=== PATIENT | female | born 1990 | race Caucasian/White ===

== ENCOUNTER 2017-01-24 10:05 | Inpatient (IN) | payer MEDICAID ==
[2017-01-25] MEDS ORDERED: RINGER'S SOLUTION,LACTATED 1,000 ML IV ONE ×3 (00:09→18:15)
[2017-01-25] MEDS ORDERED: OXYTOCIN/DEXTROSE 5%-WATER 30 UNITS/500 ML BAG IV ONE ×2 (00:09→18:15)
[2017-01-25] MEDS ORDERED: ONDANSETRON HCL/PF 2 MG/ML VIAL IV PRN ×3 (00:09→18:15)
[2017-01-25] MEDS ORDERED: LIDOCAINE HCL 50 ML VIAL PERI PRN (00:09)
--- NOTE | 2017-01-25 04:14 | PN ---
Progess Note - Interim Narrative: 01/25/17 04:11 Patient rating contractions mild Vital signs stable. Pitocin at every mu/min. FHT: 140 baseline, reassuring Contractions q 3-4 min Cervix: /-1, AROM-scant clear Impression: Intrauterine at 40 6/7 weeks, induction of labor for post dates Plan: Continue present plan
[2017-01-25] MEDS ORDERED: BUPIVACAINE HCL/0.9 % NACL/PF 250 ML EP PRN (04:48)
[2017-01-25] MEDS ORDERED: NALOXONE HCL 1 MG/1 ML SYRG IV PRN (04:48)
[2017-01-25] MEDS ORDERED: fentaNYL CITRATE/PF 50 MCG/ML AMPUL IT SCH (05:00)
--- NOTE | 2017-01-25 05:39 | OR ---
Anesthesia Pre Procedure Eval Date of Service: 01/25/17 Pre Procedure Evaluation: Anesthesia Pre Procedure Evaluation Heart Rate: 94 Blood Pressure: 106/57 Temperature: 36.5C Respiratory Rate: 18 SaO2: 98 DATE: 01/25/2017 TIME: 05 35 INDICATIONS: Active labor, labor pain PAST MEDICAL HISTORY: Multipara patient in active labor requesting labor analgesia History of GERD: No History of smoking: No History of sleep apnea: No EXAM: Heart regular; lungs clear ASSESSMENT OF MEDICAL STATUS: Appropriate candidate for labor analgesia PLANNED PROCEDURE: Combination spinal epidural for labor analgesia Home Medications: HOME MEDICATIONS Ferrous Sulfate [Iron] 325 mg PO DAILY 12/04/12 [Last Taken 09/01/16 08:00] Vits96/Iron Fum/Folic [ S] 1 tab PO DAILY 12/04/12 [Last Taken 09/01/16 08:00]
--- NOTE | 2017-01-25 06:03 | OR ---
Anesthesia Procedure Note - Anesthesia Procedure Note Date of Service: 01/25/17 Narrative: 01/25/17 06:01 ANESTHESIA PROCEDURE NOTE Date of Procedure: 01/25/2017 Time of procedure: 5:35 AM. Performed by: ITZEL Jalloh CRNA, MSN Crane Rigger: Sandee Garcia. Preprocedure diagnosis: Active labor, labor pain. Post procedure diagnosis: Same. Procedure:Epidural for labor analgesia L3 4. Indications: Active labor, labor pain. Findings: See below. Details of the procedure: The patient was placed on the side of the bed in sitting positionand prepped with DuraPrep then draped in a sterile fashion. Lidocaine 1% was infiltrated to the skin and subcutaneous tissues at the level of the L3 4 interspace. An 18-gauge Touhy needle was used to approach the epidural space with loss of resistance technique. Once loss of resistance was achieved a 27-gauge spinal needle was passed through the epidural needle and CSF was contacted. After CSF returned, 20 mcg of fentanyl was injected in the spinal needle was removed the epidural catheter was then threaded approximately 4 cm in the epidural needle was removed. The catheter was taped in place and after careful aspiration 3 mL of 1.5% lidocaine with 1-200,000 epinephrine was injected without change in maternal heart rate or sensorium. . EBL: Minimal. Fluids: N/A. Specimen: N/A. Post procedure condition: The patient tolerated the procedure well with. Good Relief. No complications were noted. Thank you for this consultation. Desmond Nieto CRNA, ARNP, MSN
[2017-01-25] MEDS: DEXTROSE 5%-LACTATED RINGERS 1,000 ML IV PRN ×3 (06:32→14:30)
--- NOTE | 2017-01-25 12:58 | PN ---
Progess Note - Interim Narrative: 01/25/17 12:56 Patient comfortable with epidural Vital signs stable. Pitocin at 18 mu/min. FHT: 130 baseline, several breaks and the tracing was therefore Contractions q 2 -3 min Cervix: 7/90/-2 Impression: Intrauterine at 40 6/7 weeks, induction of labor for postdates Plan: Continue present plan
--- NOTE | 2017-01-25 16:45 | PN ---
Progess Note - Interim Narrative: 01/25/17 16:40 Patient not getting much relief with epidural during contractions despite 3 re- boluses. AFVSS. Variable late decelerations becoming more frequent, despite multiple position changes. Patient unable to push presenting part past 0 station. Contractions q 2-3 min. Pitocin at 15 mu/min. Cvx complete/0. Large caput. Impression: 40 6/7 wk IUP with intolerance to labor Plan: If tracing doesn't improve will proceed with emergent C/S.
[2017-01-25] MEDS ORDERED: ceFAZolin SODIUM 1 GM VIAL IM/IV ONE (17:10)
[2017-01-25] MEDS ORDERED: OXYTOCIN 20 UNITS in RINGER'S SOLUTION,LACTATED 1,000 ML IV ONE (17:13)
[2017-01-25] MEDS ORDERED: ceFAZolin SODIUM/DEXTROSE,ISO 2 GM/50 ML BAG IV ONE (17:13)
[2017-01-25] MEDS ORDERED: RINGER S LACTATED IV ONE (18:10)
[2017-01-25] MEDS ORDERED: BISACODYL 10 MG SUPP.RECT RC PRN (18:15)
[2017-01-25] MEDS ORDERED: SIMETHICONE 80 MG TAB.CHEW PO PRN (18:15)
[2017-01-25] MEDS ORDERED: HYDROCORTISONE 30 APPL TUBE TP PRN (18:15)
[2017-01-25] MEDS ORDERED: SENNOSIDES 8.6 MG TABLET PO PRN (18:15)
[2017-01-25] MEDS ORDERED: oxyCODONE HCL/ACETAMINOPHEN 1 TAB TABLET PO PRN (18:15)
[2017-01-25] MEDS ORDERED: GLYCERIN/WITCH HAZEL LEAF 40 APPL BOX TP PRN (18:15)
[2017-01-25] MEDS ORDERED: BENZOCAINE/MENTHOL 81 SPRAY CAN TP PRN (18:15)
--- NOTE | 2017-01-25 18:20 | OR ---
Operative Report - Dictated Report Narrative: Indication: Nonreassuring tracing Status: Emergent Pre Operative Diagnosis: 40 6/7 week intrauterine , nonreassuring tracing Post Operative Diagnosis: Same. Procedure Preformed: Primary Low Transverse Section Surgeon: Nidhi Henry DO Cloth Napping Supervisor: OR Staff Anesthesia: Spinal ,TAP block Estimated Blood Loss: 1500 mL Urine Output: 250 mL clear urine Fluids Given: 1200 mL Drains: Bonilla to gravity Surgical Complications: None Specimens: Placenta to freezer Findings: Male in cephalic presentation born at 1721 on 01/25/2018 with Apgars 8 and 9, weighing 4060 g. Normal uterus, tubes, ovaries. Technique: The patient was taken to the operating room and placed in dorsal supine position with a left lateral tilt. After adequate spinal anesthesia, bonilla catheter insertion,SCDs placed, and 2 g of Ancef given preoperatively, the abdominal cavity was entered via a modified Devin-Quevedo incision. A transverse incision was made in the lower uterine segment and extended laterally and upwardly with digital traction. Clear fluid was noted upon amniotomy. The infant was delivered easily. The cord was clamped and cut and infant was handed off to awaiting cadet deck. The placenta was allowed to deliver spontaneously. The uterus was cleared of clot and debris. The uterine incision extended to the left uterine vessels. Uterine incision was closed with 0 Vicryl using a running stitch. A second imbricating layer was placed. Excellent hemostasis was noted. The peritoneum was closed with a running 3-0 Monocryl. The same suture was used to approximate the rectus and pyramidalis muscles. The fascia was closed with a running 0 Vicryl. The subcutaneous layer was closed with a running 3-0 Monocryl. The same suture was used to approximate the subdermal layer. The skin was closed with a running 4-0 Monocryl and Dermabond. Sponge, lap, needle, and instrument count were correct x 2. Disposition: The patient was transferred to post anesthesia care unit in good condition
--- NOTE | 2017-01-25 18:32 | OR ---
Anesthesia Procedure Note - Anesthesia Procedure Note Date of Service: 01/25/17 Narrative: Vital Signs - Last Taken Temp 37 C 01/25/17 18:25 Pulse 107 H 01/25/17 18:25 Resp 18 01/25/17 18:25 BP 119/57 01/25/17 18:25 Pulse Ox 100 01/25/17 18:25 O2 Oxygen Delivery Method Room Air 01/25/17 18:30 ANESTHESIA PROCEDURE NOTE Date of Procedure: 01/25/2017. Time of procedure: 1814. Performed by: Byron Ireland CRNA Laboratory Aide: None. Preprocedure diagnosis: Emergency . Post procedure diagnosis: Same. Procedure: Bilateral ultrasound-guided transversus abdominis plane block for postop analgesia. Indications: The patient is a 26 -year-old female post section, requesting bilateral ultrasound-guided tap blocks for postoperative analgesia. Findings: See below. Details of the procedure: ChloraPrep was used on the patient's abdomen and the procedure was performed under sterile technique. The right abdominal fascial layer between the internal oblique muscle and the transversus abdominis muscles was identified under ultrasound guidance. A 21-gauge 4 inch block needle was inserted under ultrasound guidance to the target fascial plane. 15 mL's of 0.25 % bupivacaine plus epinephrine 1:200,000 was injected after negative aspiration for blood. The needle was removed intact and the procedure was then repeated at the left side. No complications were noted. The images were retained in the hospital medical database . EBL: Minimal. Fluids: N/A. Specimen: N/A. Post procedure condition: The patient tolerated the procedure well. No complications were noted. Thank you for this consultation. Byron Ireland CRNA
[2017-01-25] MEDS: oxyCODONE HCL/ACETAMINOPHEN 1 TAB TABLET PO PRN ×2 (19:44→23:12)
[2017-01-25] MEDS: DOCUSATE SODIUM 100 MG CAPSULE PO SCH (21:36)
[2017-01-25] MEDS: IBUPROFEN 800 MG TABLET PO PRN (21:36)
[2017-01-26] MEDS: IBUPROFEN 800 MG TABLET PO PRN ×3 (05:21→19:11)
[2017-01-26] MEDS: DOCUSATE SODIUM 100 MG CAPSULE PO SCH ×2 (10:31→21:04)
[2017-01-26] MEDS: oxyCODONE HCL/ACETAMINOPHEN 1 TAB TABLET PO PRN ×3 (10:31→21:06)
--- NOTE | 2017-01-26 12:05 | PN ---
Subjective - Date and Time Seen Date: 01/26/17 Time: 12:04 Objective - Vitals Vitals: Last Vital Signs Temp 37.1 C 01/26/17 08:28 Pulse 64 01/26/17 08:28 Resp 16 01/26/17 08:28 BP 95/54 01/26/17 08:28 Pulse Ox 98 01/26/17 08:28 Patient denies complaints. Tolerating regular diet. Ambulating without difficulty. Pain well controlled. Lochia wnl. Abdomen - soft, appropriately tender Incision - clean, dry, intact Uterus - firm, at umbilicus -1 No calf tenderness Impression: Post op day #1 s/p primary section. Plan: Continue routine post-operative/ care Cauti Physician Documentation - Urinary Catheter Management Urethral (Olivares) Date of Insertion: 01/25/17 Time of Insertion: 06:30
[2017-01-27] MEDS: oxyCODONE HCL/ACETAMINOPHEN 1 TAB TABLET PO PRN ×3 (04:21→23:55)
[2017-01-27] MEDS: IBUPROFEN 800 MG TABLET PO PRN ×3 (09:56→23:56)
[2017-01-27] MEDS: DOCUSATE SODIUM 100 MG CAPSULE PO SCH ×2 (09:58→21:46)
--- NOTE | 2017-01-27 13:50 | PN ---
Subjective - Date and Time Seen Date: 01/27/17 Time: 13:50 Objective - Vitals Vitals: Last Vital Signs Temp 36.8 C 01/27/17 09:55 Pulse 91 01/27/17 09:55 Resp 18 01/27/17 09:55 BP 105/56 01/27/17 09:55 Pulse Ox 100 01/27/17 09:55 Patient denies complaints. Ambulating well. Tolerating regular diet. Pain well controlled. Lochia wnl. Abdomen - soft, appropriately tender Incision - clean, dry, intact Uterus - firm, at umbilicus -2 No calf tenderness Impression: Post op day #2 s/p primary section for nonreassuring tracing. Plan: Continue routine post-operative/ care Cauti Physician Documentation - Urinary Catheter Management Urethral (Olivares) Date of Insertion: 01/25/17 Time of Insertion: 06:30
[2017-01-28 08:17] VITALS: BP 138/70
[2017-01-28] MEDS: DOCUSATE SODIUM 100 MG CAPSULE PO SCH (09:34)
--- NOTE | 2017-01-28 11:24 | PN ---
Subjective - Date and Time Seen Date: 01/28/17 Subjective Narrative: post op day 3, s/p primary c/s for NRFHR. doing well. no complaints. bottle feeding. normal lochia. ambulating well. Objective - Vitals Vitals: Last Vital Signs Temp 36.8 C 01/28/17 08:14 Pulse 85 01/28/17 08:14 Resp 18 01/28/17 08:14 BP 138/70 01/28/17 08:14 Pulse Ox 98 01/28/17 08:14 - Exam Constitutional: Present: Alert, Oriented x3, Cooperative Respiratory: Present: no respiratory distress Abdomen: Present: soft, nontender, nondistended, other - fundus firm. C/S incision dry and clean with steri strips intact. Extremity: Present: normal range of motion, no pedal edema, no calf tenderness Skin Exam: Present: normal color, warm/dry, no cyanosis Appearance: Present: appropriate appearance Eye contact: Present: cooperative, good eye contact, normal speech Cauti Physician Documentation - Urinary Catheter Management Urethral (Olivares) Date of Insertion: 01/25/17 Time of Insertion: 06:30 Assessment/Plan Plan Narrative: A: POD#3, s/p primary c/s stable and well. Plan: will discharge home today. Fox Zuniga MD
[2017-01-28] MEDS: IBUPROFEN 800 MG TABLET PO PRN (12:37)
== END 2017-01-28 13:41 | disposition home or self-care (01) | DRG 766 ==
LOC: UNDOADMIN 23:59 → OB 23:59
PROVIDERS: ADMIT Obstetrics & Gynecology; ATTEND Obstetrics & Gynecology
PROC: 10907ZC Drainage of Amniotic Fluid, Therapeutic from Products of Conception, Via Natural or Artificial Opening (ICD-10-PCS; 2017-01-25)
PROC: 3E0P3VZ Introduction of Hormone into Female Reproductive, Percutaneous Approach (ICD-10-PCS; 2017-01-25)
PROC: 4A1H7CZ Monitoring of Products of Conception, Cardiac Rate, Via Natural or Artificial Opening (ICD-10-PCS; 2017-01-25)
PROC: 10D00Z1 Extraction of Products of Conception, Low, Open Approach (ICD-10-PCS; principal; 2017-01-25 17:00)
DX: O76 Abnormality in fetal heart rate and rhythm complicating labor and delivery (principal); O48.0 Post-term pregnancy; O99.02 Anemia complicating childbirth; D50.8 Other iron deficiency anemias; Z3A.41 41 weeks gestation of pregnancy; Z37.0 Single live birth

== ENCOUNTER 2018-07-11 05:02 | Inpatient (IN) ==
--- NOTE | 2018-07-10 11:43 | HP ---
Chief Complaint - Chief Complaint Date of Service: 07/10/18 Time of Service: 11:31 Chief Complaint: RLTCS History of Present Illness: 27 yo will be 39 3/7 weeks on date of planned repeat section (07/11/18). This complicated by anemia, anxiety/depression, smoking, and prior c/s. Rh positive Rubella Nonimmune GBS negative Medical History (Updated 04/12/18 @ 15:59 by Ariane Meng RN) Anemia (Acute) Onset Date: ~06/20/16 w/ pregnancies Tobacco abuse (Chronic) Marijuana use (Acute) Abnormal Pap smear of cervix Onset Date: ~2014 2006, 2012, 2014 Anxiety disorder Onset Date: ~2008 tx'd with Xanax and most recently Lexapro in 2016 Asthma Onset Date: Unknown childhood. Chlamydia Onset Date: ~2011 Depression Onset Date: ~03/2016 d/c Lexapro prior to Surgical History: Surgical History (Updated 12/18/17 @ 11:46 by Mamadou Henry DO) Previous section (Chronic) Low transverse for non-reassuring tracing H/O adenoidectomy Onset Date: ~07/2004 History of tonsillectomy Onset Date: ~07/2004 Previous section Onset Date: ~01/25/17 Family History: Family History (Updated 12/06/17 @ 14:46 by Chelsea Yoon RN) Mother Hypertension Uncle CHF (congestive heart failure) maternal Diabetes Aunt Diabetes maternal Social History: Preferred Language Khmer Smoking Status Former smoker (Last Updated 07/05/18 @ 11:41 by Mamadou Henry DO) No Social History Section defined Review Of Systems (GEN) - Review of Systems Generalized/Overall Review: Present: No Symptoms Reported EENTM: Present: No Symptoms Reported Respiratory: Present: No Symptoms Reported Cardiac: Present: No Symptoms Reported Abdominal: Present: No Symptoms Reported Genitourinary: Present: No Symptoms Reported, Hematuria Neurological: Present: No Symptoms Reported Skin: Present: No Symptoms Reported Endocrine: Present: No Symptoms Reported Allergies/Adverse Reactions: Allergies Allergy/AdvReac Type Severity Reaction Status Date / Time No Known Allergies Allergy Verified 07/05/18 10:56 Home Medications: HOME MEDICATIONS vitamin,calcium,irekpcbd-yzbf-nokam acid tablet 1 tab PO DAILY 12/18/17 [Last Taken Unknown] ferrous sulfate 325 mg (65 mg iron) tablet,delayed release 325 mg PO DAILY tab 04/12/18 [Last Taken Unknown] Exam - Exam Vital Signs: 07/05/18 Height 1.65 m 07/05/18 Weight 73.9 kg 07/05/18 Body Mass Index (BMI) 27.1 07/05/18 Blood Pressure 90/67 07/05/18 Blood Pressure Position Sitting 07/05/18 Respiratory Rate 16 07/05/18 Pulse Rate 88 07/05/18 Temperature 36.1 C 07/05/18 Temperature Source Tympanic 07/05/18 O2 Sat by Pulse Oximetry 100 07/05/18 Oxygen Delivery Method room air Constitutional: Present: Alert, Oriented x3, Cooperative ENT Exam: Present: hearing grossly normal Breasts: Present: Exam deferred Respiratory: Present: lungs clear, no respiratory distress Cardiovascular/Chest: Present: regular rate, rhythm, no edema Abdomen: Present: soft, nontender, no rebound tenderness, other - gravid /Rectal: Present: Exam deferred Extremity: Present: no pedal edema, no calf tenderness Skin Exam: Present: normal color, warm/dry, no cyanosis Lymphatic: Present: no adenopathy Appearance: Present: appropriate appearance, appropriate insight Eye contact: Present: cooperative, good eye contact Thoughts: Present: normal thought pattern Assessment/Plan - Assessment/Plan (1) Previous section Assessment: Admit for repeat section with possible abdominal scar revision. Problem: Chronic (2) Anxiety and depression Problem: Chronic (3) Anemia Problem: Acute Qualifiers: Anemia type: iron deficiency Iron deficiency anemia type: inadequate dietary iron intake Qualified Code(s): D50.8 - Other iron deficiency anemias
[2018-07-11] MEDS ORDERED: ceFAZolin SODIUM/DEXTROSE,ISO 2 GM/50 ML BAG IV ONE (05:06)
[2018-07-11] MEDS ORDERED: OXYTOCIN 20 UNITS in RINGER'S SOLUTION,LACTATED 1,000 ML IV ONE ×2 (05:06→09:46)
[2018-07-11] MEDS ORDERED: RINGER'S SOLUTION,LACTATED 1,000 ML IV PRN ×2 (05:06)
[2018-07-11 06:15] LABS: Cocaine Ur Negative (NEGATIVE); Urine Barbiturate Negative (NEGATIVE); Urine Benzodiazepines Negative (NEGATIVE); Urine Opiates Negative (NEGATIVE); Urine PCP Negative (NEGATIVE); Urine THC Negative (NEGATIVE)
--- NOTE | 2018-07-11 07:37 | ANES ---
Anesthesia Pre Procedure Eval Vitals/Labs: Last Vital Signs Temp 36.8 C 07/11/18 05:54 Pulse 93 07/11/18 05:54 Resp 16 07/11/18 05:54 BP 102/57 07/11/18 05:54 Pulse Ox 98 07/11/18 05:54 HOME MEDICATIONS vitamin,calcium,augubilb-jnbm-krkbo acid tablet 1 tab PO DAILY 12/18/17 [Last Taken Unknown] ferrous sulfate 325 mg (65 mg iron) tablet,delayed release 325 mg PO DAILY tab 04/12/18 [Last Taken Unknown] Allergies/Adverse Reactions: Allergies Allergy/AdvReac Type Severity Reaction Status Date / Time No Known Allergies Allergy Verified 07/11/18 05:35 - Planned Procedure Planned Procedure: Repeat Section w/poss abdominal scar revi Medication List Reviewed:: Yes Allergies Verified: Yes Medical History (Updated 07/10/18 @ 11:43 by Mamadou Henry DO) Anemia (Acute) Onset Date: ~06/20/16 w/ pregnancies Tobacco abuse (Chronic) Marijuana use (Acute) Abnormal Pap smear of cervix Onset Date: ~2014 2006, 2012, 2014 Anxiety disorder Onset Date: ~2008 tx'd with Xanax and most recently Lexapro in 2017 Asthma Onset Date: Unknown childhood. Chlamydia Onset Date: ~2011 Depression Onset Date: ~03/2016 d/c Lexapro prior to Surgical History (Updated 07/10/18 @ 11:43 by Mamadou Henry DO) Previous section (Chronic) Low transverse for non-reassuring tracing H/O adenoidectomy Onset Date: ~07/2004 History of tonsillectomy Onset Date: ~07/2004 Previous section Onset Date: ~01/25/17 Family History (Updated 12/06/17 @ 14:46 by Chelsea Yoon RN) Mother Hypertension Uncle CHF (congestive heart failure) maternal Diabetes Aunt Diabetes maternal - Airway/Neck/Teeth Within Normal Limits:: Yes Teeth Condition: intact Denture Type: None Mallampatti Score: 1 Thyromental (T-M) distance: > 6 cm Mandibulo Hyoid distance: > 3 cm - Respiratory Respiratory Physical: lungs clear Smoking Status: Former smoker Sleep Apnea currently treated: No Sleep Apnea by current assessment: No - Cardiovascular Tolerate Activity: Good Heart Sounds: S1 & S2, Regular - Anesthesia Assessment and Plan ASA Class: PS, II Anesthesia Type Plan: Spinal, Epidural - Bilat TAP block for postop analgesia Planned difficult intubation/equipment available: No
[2018-07-11] MEDS ORDERED: oxyCODONE HCL/ACETAMINOPHEN 1 TAB TABLET PO PRN (09:46)
[2018-07-11] MEDS ORDERED: SIMETHICONE 80 MG TAB.CHEW PO PRN (09:46)
[2018-07-11] MEDS ORDERED: BISACODYL 10 MG SUPP.RECT RC PRN (09:46)
[2018-07-11] MEDS ORDERED: ONDANSETRON HCL/PF 2 MG/ML VIAL IV PRN (09:46)
[2018-07-11] MEDS ORDERED: SENNOSIDES 8.6 MG TABLET PO PRN (09:46)
--- NOTE | 2018-07-11 09:54 | OR ---
Operative Report - Dictated Report Narrative: Indication: 27-year-old 3 para 2 with prior section desires repeat section. status: Planned Pre Operative Diagnosis: 39-3/7 week intrauterine . Prior section. Post Operative Diagnosis: Same. Procedure: Repeat low transverse section. Abdominal scar revision - 16cm Surgeon: Nidhi Henry DO Immigration Associate: OR Staff Anesthesia: Spinal, TAP block Estimated Blood Loss: 2000 mL Urine Output: 150 mL clear urine Fluids Replacement: 1700 mL Drains: Bonilla to gravity Surgical Complications: None Specimens: Placenta to pathology Findings: Female born at 0828 on 07/11/2019 with Apgars 9 and 9, weighing 3485 g in cephalic presentation. Increased vascularity in subcutaneous tissue and uterine wall. Otherwise, normal appearing uterus, tubes, and ovaries. Technique: The patient was taken to the operating room and placed in dorsal supine position with a left lateral tilt. After adequate spinal anesthesia, bonilla catheter inserted, SCDs placed, and 2 g of Ancef given preoperatively, the previous scar was excised in an elliptical fashion. Subcutaneous bleeders were controlled with cautery. The abdominal cavity was entered using sharp and blunt dissection. Two rolled laps were placed in the pericolic gutters on either side of the uterus. A transverse incision was made in the lower uterine segment and extended laterally and upwardly with digital traction. Large uterine vessels were encountered with profuse bleeding. Clear fluid was noted upon amniotomy. The infant was delivered easily. The cord was clamped and cut and was handed off to awaiting lining marker. The placenta was anterior and close to the uterine incision. Placenta was allowed to deliver spontaneously. The uterus was cleared of clot and debris. Uterine incision was closed with 0 Vicryl using a running stitch. A second imbricating layer was placed. 4 [id number] 0 Vicryl sutures were placed to control bleeding. Adequate hemostasis was noted. The rolled laps were removed from the abdominal cavitiy. The peritoneum was closed with a running 3-0 Monocryl. The same suture was used to approximate the rectus and pyramidalis muscles. The fascia was closed with a running 0 Vicryl. The subcutaneous layer was closed with a running 3-0 Monocryl. The same suture was used to approximate the subdermal layer. The skin was closed with a running 4-0 Monocryl and Dermabond. Sponge, lap, needle, and instrument count were correct x 2. Disposition: To post anesthesia care unit in good condition History for MU Definition: * The number of deliveries resulting in a live the patient experienced prior to current hospitalization * The previous delivery of live twins or any live multiple gestation is considered one live event. *If primagravida or nulliparous is documented select zero for the number of previous live births. Live Events: 2
--- NOTE | 2018-07-11 09:59 | ANES ---
Post Anesthesia Discharge - Transfer of Care Transfer of Care handoff given to nurse: Yes - Discharge from PACU Discharge from PACU when meets criteria: Yes
[2018-07-11] MEDS: oxyCODONE HCL/ACETAMINOPHEN 1 TAB TABLET PO PRN ×5 (10:51→23:14)
[2018-07-11] MEDS: IBUPROFEN 800 MG TABLET PO PRN ×3 (10:51→23:13)
--- NOTE | 2018-07-11 11:24 | ANES ---
Anesthesia Procedure Note Procedure Note: My anesthesia procedureANESTHESIA PROCEDURE NOTE Date of procedure:[]. 07/11/2018 Time of procedure: 1030. Performed by: Virgilio Nunez CRNA Tapping Machine Operator: Kimberly Dubon RN . Preprocedure diagnosis: Status post section. Desire for postoperative analgesia Post procedure diagnosis: Same. Procedure: Ultrasound-guided bilateral tap block Indications: [Postoperative analgesia. Findings: Patient brought to the PACU and placed in a supine position. Patient's right abdominal wall prepped with ChloraPrep. Ultrasound was utilized to identify the fascial layer between the internal oblique and trans-abdominus muscles. A 20-gauge 4 inch regional block needle was advanced under ultrasound guidance until the needle was positioned just posterior to fascial layer. 20 mL of 0.25% Marcaine with epinephrine 1 200,000 was injected with adequate spread of local anesthesia noted. Procedure was repeated on patient's left side. EBL: Minimal. Fluids: N/A. Specimen: N/A. Post procedure condition: The patient tolerated the procedure well. No complications were noted. Thank you for this consultation Virgilio Nunez CRNA
[2018-07-11] MEDS: ENOXAPARIN SODIUM 40 MG/0.4 ML SYRG SC SCH (20:46)
[2018-07-11] MEDS: DOCUSATE SODIUM 100 MG CAPSULE PO SCH (20:46)
[2018-07-12] MEDS: oxyCODONE HCL/ACETAMINOPHEN 1 TAB TABLET PO PRN ×4 (03:23→18:29)
--- NOTE | 2018-07-12 09:03 | PN ---
Subjective - Date and Time Seen Date: 07/12/18 Time: 09:02 Objective - Vitals Vitals: Last Vital Signs Temp 36.3 C 07/12/18 08:33 Pulse 87 07/12/18 08:33 Resp 18 07/12/18 08:33 BP 97/59 07/12/18 08:33 Pulse Ox 99 07/12/18 08:33 Patient denies complaints. Tolerating regular diet. Ambulating without difficulty. Pain well controlled. Lochia wnl. Abdomen - soft, appropriately tender Incision - clean, dry, intact Uterus - firm, at umbilicus -1 No calf tenderness Impression: Post op day #1 s/p repeat section. Plan: Continue routine post-operative/ care Cauti Physician Documentation - Urinary Catheter Management 2-way Urethral Date of Insertion: 07/11/18 Time of Insertion: 08:10 Date of Removal: 07/11/18 Time of Removal: 21:00 Assessment/Plan - Problems/Diagnosis (1) Previous section Problem: Chronic (2) Anxiety and depression Problem: Chronic (3) Anemia Problem: Acute Qualifiers: Anemia type: iron deficiency Iron deficiency anemia type: inadequate dietary iron intake Qualified Code(s): D50.8 - Other iron deficiency anemias
[2018-07-12] MEDS: IBUPROFEN 800 MG TABLET PO PRN ×2 (09:17→18:29)
[2018-07-12] MEDS: DOCUSATE SODIUM 100 MG CAPSULE PO SCH ×2 (09:17→21:20)
[2018-07-12] MEDS: PRENATAL VITS96/IRON FUM/FOLIC 1 TAB TABLET PO SCH (09:19)
[2018-07-12] MEDS: FERROUS SULFATE 325 MG TABLET PO SCH (09:20)
[2018-07-12] MEDS: ENOXAPARIN SODIUM 40 MG/0.4 ML SYRG SC SCH (21:20)
--- NOTE | 2018-07-13 02:59 | PN ---
Subjective - Date and Time Seen Date: 07/13/18 Time: 02:57 Objective - Vitals Vitals: Last Vital Signs Temp 36.7 C 07/12/18 18:37 Pulse 87 07/13/18 00:03 Resp 14 07/13/18 00:03 BP 102/54 07/13/18 00:03 Pulse Ox 98 07/13/18 00:03 Ambulating well. Tolerating regular diet. Pain well controlled with PO pain meds. Lochia wnl. Abdomen - soft, appropriately tender Incision - clean, dry, intact Uterus - firm, at umbilicus -2 No calf tenderness Impression: Post op day #2 s/p repeat section. Plan: Continue routine post-operative/ care Cauti Physician Documentation - Urinary Catheter Management 2-way Urethral Date of Insertion: 07/11/18 Time of Insertion: 08:10 Date of Removal: 07/11/18 Time of Removal: 21:00 Assessment/Plan - Problems/Diagnosis (1) Previous section Problem: Chronic (2) Anxiety and depression Problem: Chronic (3) Anemia Problem: Acute Qualifiers: Anemia type: iron deficiency Iron deficiency anemia type: inadequate dietary iron intake Qualified Code(s): D50.8 - Other iron deficiency anemias
[2018-07-13] MEDS: oxyCODONE HCL/ACETAMINOPHEN 1 TAB TABLET PO PRN ×2 (03:05→17:39)
[2018-07-13] MEDS: IBUPROFEN 800 MG TABLET PO PRN ×2 (03:06→17:41)
[2018-07-13] MEDS: DOCUSATE SODIUM 100 MG CAPSULE PO SCH ×2 (14:07→21:18)
[2018-07-13] MEDS: PRENATAL VITS96/IRON FUM/FOLIC 1 TAB TABLET PO SCH (14:08)
[2018-07-13] MEDS: FERROUS SULFATE 325 MG TABLET PO SCH (14:08)
[2018-07-13] MEDS ORDERED: CEPHALEXIN MONOHYDRATE 250 MG CAPSULE ONE (19:20)
[2018-07-13] MEDS: CEPHALEXIN MONOHYDRATE 500 MG CAPSULE PO SCH (20:09)
[2018-07-13] MEDS: ENOXAPARIN SODIUM 40 MG/0.4 ML SYRG SC SCH (21:18)
[2018-07-14] MEDS: oxyCODONE HCL/ACETAMINOPHEN 1 TAB TABLET PO PRN (08:05)
[2018-07-14] MEDS: IBUPROFEN 800 MG TABLET PO PRN (08:05)
[2018-07-14] MEDS: CEPHALEXIN MONOHYDRATE 500 MG CAPSULE PO SCH (09:43)
[2018-07-14] MEDS: DOCUSATE SODIUM 100 MG CAPSULE PO SCH (09:43)
[2018-07-14] MEDS: FERROUS SULFATE 325 MG TABLET PO SCH (09:43)
[2018-07-14] MEDS: PRENATAL VITS96/IRON FUM/FOLIC 1 TAB TABLET PO SCH (09:45)
[2018-07-14 10:21] VITALS: BP 89/72
--- NOTE | 2018-07-14 11:12 | PN ---
Subjective - Date and Time Seen Date: 07/14/18 Time: 11:11 Objective - Vitals Vitals: Last Vital Signs Temp 36.8 C 07/14/18 08:00 Pulse 82 07/14/18 08:00 Resp 18 07/14/18 08:00 BP 89/72 L 07/14/18 08:00 Pulse Ox 98 07/14/18 08:00 Patient denies complaints. Ambulating without difficulty. Tolerating regular diet. Pain well controlled. Lochia wnl. Abdomen - soft, appropriately tender Incision - clean, dry, intact Uterus - firm, at umbilicus -3 No calf tenderness Impression: Post op day #3 s/p repeat section with abdominal scar revision. Excess bleeding from hypervascularity of subcutaneous tissue and uterus. Plan: Routine discharge instructions. Follow-up in 2 weeks. Cauti Physician Documentation - Urinary Catheter Management 2-way Urethral Date of Insertion: 07/11/18 Time of Insertion: 08:10 Date of Removal: 07/11/18 Time of Removal: 21:00 Assessment/Plan - Problems/Diagnosis (1) Previous section Problem: Chronic (2) Anxiety and depression Problem: Chronic (3) Anemia Problem: Acute Qualifiers: Anemia type: iron deficiency Iron deficiency anemia type: inadequate dietary iron intake Qualified Code(s): D50.8 - Other iron deficiency anemias
== END 2018-07-14 13:00 | disposition home or self-care (01) | DRG 788 ==
LOC: MS 05:02
PROVIDERS: ADMIT Obstetrics & Gynecology; ATTEND Obstetrics & Gynecology
CPT/HCPCS: 59025; 80307; 88307